=== PATIENT | male | born 1945 ===

== ENCOUNTER 2017-08-29 21:57 | Emergency (ER) | payer OTHER ==
[2017-08-29] MEDS ORDERED: ONDANSETRON 4 MG/2 ML VIAL IVPUSH STA (22:12)
[2017-08-29] MEDS ORDERED: HYDROmorphone HCL CARPU-JECT 1 MG/1 ML DISP.SYRIN IVPUSH ONE (22:17)
[2017-08-29] MEDS ORDERED: morphine CARPU-JECT 4 MG/1 ML DISP.SYRIN IVPUSH ONE (22:20)
[2017-08-29] MEDS ORDERED: morphine SULFATE 4 MG/ML VIAL ONE (22:26)
[2017-08-29] MEDS ORDERED: ONDANSETRON 4 MG/2 ML VIAL ONE (22:27)
--- NOTE | 2017-08-29 22:36 | PDOC ---
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 Ex- patient had the same kind of event on July 24 went to [facility] and then transfered to [facility] where he was admitted and discharged on 07/31. Patient states 40lbs weight loss. PMD: Dr Chiang GI: [place] Rads: Rosa ENT: Morgan PMHX: as above PSOCHX: ALL: NKDA GENERAL/CONSTITUTIONAL: [No fever or chills. No weakness. No weight change.] HEAD, EYES, EARS, NOSE AND THROAT: [No change in vision. No ear pain or discharge. (+) oral pain/throat.] CARDIOVASCULAR: [No chest pain or shortness of breath.] RESPIRATORY: [No cough, wheezing, or hemoptysis.] GASTROINTESTINAL: [No nausea, vomiting, diarrhea or constipation. No rectal bleeding.] GENITOURINARY: [No dysuria, frequency, or change in urination.] MUSCULOSKELETAL: [No joint or muscle swelling or pain. No neck or back pain.] SKIN AND BREASTS: [No rash or easy bruising.] NEUROLOGIC: (+) headache, (-) vertigo, loss of consciousness, or loss of sensation.] PSYCHIATRIC: [No depression or anxiety.] ENDOCRINE: [No increased thirst. No abnormal weight change.] HEMATOLOGIC/LYMPHATIC: (+) anemia, (+) easy bleeding, (-) history of blood clots.] ALLERGIC/IMMUNOLOGIC: [No hives or skin allergy. No latex allergy.] GENERAL: [The patient is awake, alert, and fully oriented, in mild distress.] HEAD: [Normal with no signs of trauma.] EYES: [Pupils equal, round and reactive to light, extraocular movements intact, sclera anicteric, conjunctiva clear, ] ENT: [Ears normal, nares patent, (+) slow oozoing from the left base of tongue ( +) clots, oropharynx clear without blood clots. Moist mucous membranes.] NECK: [Normal range of motion, supple without lymphadenopathy, JVD, or masses.] LUNGS: [Breath sounds equal, clear to auscultation bilaterally. No wheezes, and no crackles.] HEART: [Regular rate and rhythm, normal S1 and S2 without murmur, rub.] ABDOMEN: [Soft, nontender, normoactive bowel sounds. No guarding, no rebound. No masses.] EXTREMITIES: [Normal range of motion, mild edema, chronic skin changes lower ext. No clubbing or cyanosis. No cords, erythema, or tenderness.] NEUROLOGICAL: [Cranial nerves II through XII grossly intact. Normal speech, normal gait.] PSYCH: [Normal mood, normal affect.] Past History - Past Medical History Allergies/Adverse Reactions: Allergies Allergy/AdvReac Type Severity Reaction Status Date / Time No Known Drug Allergies Allergy Verified 07/29/15 13:05 Home Medications: Ambulatory Orders Folic Acid 1 mg PO DAILY 07/29/15 Metformin HCl 500 mg PO BID 07/29/15 Amoxicillin - [Amoxicillin 500mg Capsule -] 500 mg PO QID 08/30/17 Oxycodone HCl 10 mg PO TID 08/30/17 Anemia: No Asthma: No Cancer: No Cardiac Disorders: No CVA: No COPD: No CHF: No Dementia: No Diabetes: Yes GI Disorders: No Disorders: Yes (KIDNEY STONES) HTN: Yes Hypercholesterolemia: No Liver Disease: Yes (CIRROHSIS) Seizures: No Thyroid Disease: No - Surgical History Abdominal Surgery: No Appendectomy: No Cardiac Surgery: No Cholecystectomy: No Lung Surgery: No Neurologic Surgery: No Orthopedic Surgery: No - Suicide/Smoking/Psychosocial Hx Smoking History: Current every day smoker Number of Cigarettes Smoked Daily: 20 Information on smoking cessation initiated: No Hx Alcohol Use: Yes Drug/Substance Use Hx: No Substance Use Type: Alcohol Hx Substance Use Treatment: No ED Treatment Course - LABORATORY CBC & Chemistry Diagram: 08/29/17 22:38 08/29/17 22:38 Medical Decision Making - Medical Decision Making 08/29/17 22:28 Patient is a 72-year-old male with history of liver cirrhosis in 2014, liver shunt, thrombocytopenia, 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 Evacuated clots and suctioned the patient well. Packing to the base of tongue labs pain meds - Morphine 4mg IV IVF. labs reviewed not to have hbg 7 will transfused normal platelets 152 Patient still in pain given Morphine 2mg IV Dr. Donovan spoke with [facility] case discussed with transfer center recommend consult with ENT at this hospital. Patient was transfused 1 unit of PRBCs 08/30/17 00:01 ENT called case d/w Dr. Rodriguez, who is covering for Dr. Mora. Recommend trying viscous lidocaine, ice, packing. Also recommend transfer to a tertiary hospital for no Head and neck surgery available Case was d/w [facility] who now accepts transfer by Dr. Sun *DC/Admit/Observation/Transfer Diagnosis at time of Disposition: Hemorrhage of tongue, Cancer of oral cavity Liver cirrhosis Qualifiers: Hepatic cirrhosis type: other cirrhosis Qualified Code(s): K74.69 - Other cirrhosis of liver Anemia Qualifiers: Anemia type: other cause Other causes of anemia: other cause, not classified Qualified Code(s): D64.89 - Other specified anemias - Discharge Dispostion Disposition: TRANSFER ACUTE CARE/OTHER HOSP Condition at time of disposition: Stable - Referrals - Patient Instructions - Post Discharge Activity
[2017-08-29 22:43] LABS: BASO % 0.6 % (0-2.0); EOS % 0.6 % (0-4.5); HEMOGLOBIN 7.7 GM/dL (11.7-16.9); LYMPH % 6.5 % (8-40); MCH 29.1 pg (25.7-33.7); MCHC 33.4 g/dl (32.0-35.9); MEAN CELL VOLUME 87.3 fl (80-96); MEAN PLT VOLUME 7.3 fl (7.5-11.1); MONO % 5.5 % (3.8-10.2); NEUT % 86.8 % (42.8-82.8); PLATELET COUNT 143 K/MM3 (134-434); RBC 2.64 M/mm3 (4.00-5.60); RDW 19.7 % (11.9-15.9); WHITE BLOOD COUNT 8.6 K/mm3 (4.0-10.0)
[2017-08-29 23:01] LABS: INR 1.41 (0.82-1.09); PROTHROMBIN TIME (PATIENT) 15.9 SEC (9.7-13.0)
[2017-08-29 23:08] LABS: ALK PHOS 320 U/L (45-117); ANION GAP 9 (8-16); BILIRUBIN,TOTAL 0.9 mg/dL (0.2-1.0); BLOOD UREA NITROGEN 27 mg/dL (7-18); CALCIUM 8.4 mg/dL (8.5-10.1); CHLORIDE 109 mmol/L (98-107); CO2 26 mmol/L (21-32); CREATININE 0.8 mg/dL (0.7-1.3); GLUCOSE,RANDOM 182 mg/dL (74-106); LIPASE 81 U/L (73-393); POTASSIUM 4.7 mmol/L (3.5-5.1); SGOT/AST 32 U/L (15-37); SGPT/ALT 38 U/L (12-78); SODIUM 144 mmol/L (136-145); TOT PROT 6.5 g/dl (6.4-8.2)
[2017-08-29] MEDS ORDERED: morphine CARPU-JECT 2 MG/1 ML DISP.SYRIN ONE (23:18)
[2017-08-29] MEDS ORDERED: morphine CARPU-JECT 2 MG/1 ML DISP.SYRIN IVPUSH ONE (23:35)
[2017-08-29] MEDS ORDERED: LIDOCAINE VISCOUS 2% ORAL/TOP 20 ML UNIT-DOSE CUP MM ONE (23:57)
[2017-08-29] MEDS ORDERED: LIDOCAINE VISCOUS 2% ORAL/TOP 20 ML UNIT-DOSE CUP ONE (23:58)
[2017-08-29] MEDS ORDERED: LIDOCAINE HCL 2% JELLY (5 ML/TUBE) ONE (23:58)
--- NOTE | 2017-08-30 00:59 | PDOC ---
*Physical Exam - Vital Signs Last Vital Signs Temp Pulse Resp BP Pulse Ox 91 H 18 111/50 97 08/29/17 22:13 08/29/17 22:13 08/29/17 22:13 08/29/17 22:13 <Shanta Huang - Last Filed: 08/30/17 01:03> - Vital Signs Last Vital Signs Temp Pulse Resp BP Pulse Ox 91 H 18 111/50 97 08/29/17 22:13 08/29/17 22:13 08/29/17 22:13 08/29/17 22:13 <ZionBernadine Sara - Last Filed: 08/30/17 01:51> ED Treatment Course - LABORATORY CBC & Chemistry Diagram: 08/29/17 22:38 08/29/17 22:38 - ADDITIONAL ORDERS Additional order review: Laboratory Results 08/29/17 08/29/17 08/29/17 22:38 22:38 22:38 PT with INR 15.90 H INR 1.41 H Sodium Potassium Chloride Carbon Dioxide Anion Gap BUN Creatinine Creat Clearance w eGFR Random Glucose Calcium Total Bilirubin AST ALT Alkaline Phosphatase Total Protein Albumin Lipase Blood Type O POSITIVE O POSITIVE Antibody Screen Negative Negative Crossmatch See Detail 08/29/17 22:38 PT with INR INR Sodium 144 Potassium 4.7 Chloride 109 H Carbon Dioxide 26 Anion Gap 9 BUN 27 H Creatinine 0.8 Creat Clearance w eGFR > 60 Random Glucose 182 H Calcium 8.4 L Total Bilirubin 0.9 AST 32 ALT 38 Alkaline Phosphatase 320 H Total Protein 6.5 Albumin 2.0 L Lipase 81 Blood Type Antibody Screen Crossmatch 08/29/17 22:38 RBC 2.64 L MCV 87.3 MCHC 33.4 RDW 19.7 H MPV 7.3 L Neutrophils % 86.8 H Lymphocytes % 6.5 L Monocytes % 5.5 Eosinophils % 0.6 Basophils % 0.6 - Medications Given in the ED: ED Medications Discontinued Medications Generic Name Dose Route Start Last Admin Trade Name Freq PRN Reason Stop Dose Admin Hydromorphone HCl 1 mg 08/29/17 22:17 08/29/17 23:05 Dilaudid Injection - IVPUSH 08/29/17 22:18 Not Given ONCE ONE Lidocaine HCl 20 ml 08/29/17 23:57 08/30/17 00:03 Xylocaine 2% Viscous Oral - MM 08/29/17 23:58 20 ml ONCE ONE Administration Morphine Sulfate 4 mg 08/29/17 22:20 08/29/17 22:40 Morphine Injection - IVPUSH 08/29/17 22:21 4 mg ONCE ONE Administration Morphine Sulfate 2 mg 08/29/17 23:35 08/29/17 23:39 Morphine Injection - IVPUSH 08/29/17 23:36 2 mg ONCE ONE Administration Ondansetron HCl 4 mg 08/29/17 22:12 08/29/17 22:40 Zofran Injection IVPUSH 08/29/17 22:13 4 mg ONCE STA Administration <Shanta Huang - Last Filed: 08/30/17 01:03> - LABORATORY CBC & Chemistry Diagram: 08/29/17 22:38 08/29/17 22:38 - ADDITIONAL ORDERS Additional order review: Laboratory Results 08/29/17 08/29/17 08/29/17 22:38 22:38 22:38 PT with INR 15.90 H INR 1.41 H Sodium Potassium Chloride Carbon Dioxide Anion Gap BUN Creatinine Creat Clearance w eGFR Random Glucose Calcium Total Bilirubin AST ALT Alkaline Phosphatase Total Protein Albumin Lipase Blood Type O POSITIVE O POSITIVE Antibody Screen Negative Negative Crossmatch See Detail 08/29/17 22:38 PT with INR INR Sodium 144 Potassium 4.7 Chloride 109 H Carbon Dioxide 26 Anion Gap 9 BUN 27 H Creatinine 0.8 Creat Clearance w eGFR > 60 Random Glucose 182 H Calcium 8.4 L Total Bilirubin 0.9 AST 32 ALT 38 Alkaline Phosphatase 320 H Total Protein 6.5 Albumin 2.0 L Lipase 81 Blood Type Antibody Screen Crossmatch 08/29/17 22:38 RBC 2.64 L MCV 87.3 MCHC 33.4 RDW 19.7 H MPV 7.3 L Neutrophils % 86.8 H Lymphocytes % 6.5 L Monocytes % 5.5 Eosinophils % 0.6 Basophils % 0.6 - Medications Given in the ED: ED Medications Discontinued Medications Generic Name Dose Route Start Last Admin Trade Name Freq PRN Reason Stop Dose Admin Hydromorphone HCl 1 mg 08/29/17 22:17 08/29/17 23:05 Dilaudid Injection - IVPUSH 08/29/17 22:18 Not Given ONCE ONE Lidocaine HCl 20 ml 08/29/17 23:57 08/30/17 00:03 Xylocaine 2% Viscous Oral - MM 08/29/17 23:58 20 ml ONCE ONE Administration Morphine Sulfate 4 mg 08/29/17 22:20 08/29/17 22:40 Morphine Injection - IVPUSH 08/29/17 22:21 4 mg ONCE ONE Administration Morphine Sulfate 2 mg 08/29/17 23:35 08/29/17 23:39 Morphine Injection - IVPUSH 08/29/17 23:36 2 mg ONCE ONE Administration Ondansetron HCl 4 mg 08/29/17 22:12 08/29/17 22:40 Zofran Injection IVPUSH 08/29/17 22:13 4 mg ONCE STA Administration <Bernadine Donovan - Last Filed: 08/30/17 01:51> Medical Decision Making - Critical Care Time Total Critical Care Time (minutes): 120 (Required intensive care to control the hemorrhage ) Critical Care Statement: The care of this patient involved high complexity decision making to prevent further life threatening deterioration of the patient 's condition and/or to evaluate & treat vital organ system(s) failure or risk of failure. <Shanta uHang - Last Filed: 08/30/17 01:03> - Medical Decision Making 08/30/17 00:52 72-year-old male brought in by ambulance for bleeding at the base of his tongue , status post radiation treatment for tongue cancer. Past medical history is thrombocytopenia, liver cirrhosis Patient is receiving radiation treatments and has received 20 treatments in the last month. \ the last treatment was Wednesday at a clinic in [facility] at [address] [place] [address] -spoke with our ENT Dr Rodriguez who felt pt best treated at tertiary care center - lidociane placed on gauze and the area was packed but the source of the bleeding appears to be at the base of the tongue - able to visualize the airway and uvula platelets are normal at 143,000 hgb=7 and hct=23, pt is currently being transfused Case discussed w ENT Dr Sun at [facility] and he accepted the patient pt is alert with stable vital signs 08/30/17 01:46 pt has finished receiving 1 unit of bloodand [facility] ambulance has been notified <Bernadine Donovan - Last Filed: 08/30/17 01:51> *DC/Admit/Observation/Transfer <Shanta Huang - Last Filed: 08/30/17 01:03> - Transfer to Acute Care Facility Receiving Facility: [facility]. Accepting Physician:: DR SUN Transfer comment: 08/30/17 01:01 pt accepted by ENT <Bernadine Donovan - Last Filed: 08/30/17 01:51> Diagnosis at time of Disposition: Hemorrhage of tongue, Cancer of oral cavity Liver cirrhosis Qualifiers: Hepatic cirrhosis type: other cirrhosis Qualified Code(s): K74.69 - Other cirrhosis of liver Anemia Qualifiers: Anemia type: other cause Other causes of anemia: other cause, not classified Qualified Code(s): D64.89 - Other specified anemias - Discharge Dispostion Condition at time of disposition: Stable
[2017-08-30 03:00] VITALS: BP 125/44; PULSE 97; TEMP 97.8
--- NOTE | 2017-08-30 08:39 | EKG ---
Test Reason : Blood Pressure : / mmHG Vent. Rate : 095 BPM Atrial Rate : 095 BPM P-R Int : 166 ms QRS Dur : 076 ms QT Int : 346 ms P-R-T Axes : 067 -18 036 degrees QTc Int : 434 ms NORMAL SINUS RHYTHM EARLY TRANSITION NOTED ABNORMAL ECG NO PREVIOUS ECGS AVAILABLE CLINICAL CORRELATION IS RECOMMENDED Confirmed by NICOLAS MORE, SHABANA ([id number]) on 08/30/2017 8:38:53 AM Referred By: Confirmed By:SHABANA VALENZUELA MD
== END 2017-08-30 03:07 | disposition short-term general hospital (02) ==
LOC: JER 21:57
PROC: 3E033NZ Introduction of Analgesics, Hypnotics, Sedatives into Peripheral Vein, Percutaneous Approach (ICD-10-PCS; principal; 2017-08-29)
PROC: 3E033NZ Introduction of Analgesics, Hypnotics, Sedatives into Peripheral Vein, Percutaneous Approach (ICD-10-PCS; 2017-08-29)
PROC: 3E033GC Introduction of Other Therapeutic Substance into Peripheral Vein, Percutaneous Approach (ICD-10-PCS; 2017-08-29)
DX: C06.9 Malignant neoplasm of mouth, unspecified (principal); K14.8 Other diseases of tongue; D64.89 Other specified anemias; K74.69 Other cirrhosis of liver; I10 Essential (primary) hypertension; F17.210 Nicotine dependence, cigarettes, uncomplicated; Z98.890 Other specified postprocedural states
CPT/HCPCS: 36415; 36430; 80053; 83690; 85025; 85610; 86850; 86900; 86901; 86922; 93005; 93010; 96374; 96375; 96376; 99284-25; P9038; P9058